=== PATIENT | male | born 1985 | race Caucasian/White ===

== ENCOUNTER 2018-07-14 14:12 | Emergency (ER) | payer SELFPAY ==
[~2018-07-14] VITALS: Ht 177.8 cm; Wt 68.6 kg
[2018-07-14] MEDS ORDERED: SUBOXONE SL (14:42)
[2018-07-14 14:50] VITALS: BP 120/70
== END 2018-07-14 14:50 | disposition home or self-care (01) | DRG 156 ==
LOC: ED 14:12
PROC: 3E1B78Z Irrigation of Ear using Irrigating Substance, Via Natural or Artificial Opening (ICD-10-PCS; principal; 2018-07-14)
DX: H61.22 Impacted cerumen, left ear (principal)